=== PATIENT | male | born 2000 | race African-American/Black ===

== ENCOUNTER 2018-09-08 11:05 | Emergency (ER) | payer OTHER ==
[~2018-09-08] VITALS: Ht 180.3 cm; Wt 68.0 kg
[2018-09-08] MEDS ORDERED: TETRACAINE 0.5% OPHTH DROPS 4ML LEFTEYE ONE (14:30)
[2018-09-08] MEDS ORDERED: FLUORESCEIN SODIUM 1MG/STRIP LEFTEYE ONE (14:30)
[2018-09-08 15:30] VITALS: BP 117/62
== END 2018-09-08 15:45 | disposition home or self-care (01) ==
LOC: ER 11:05
DX: H01.004 Unspecified blepharitis left upper eyelid (principal); F12.10 Cannabis abuse, uncomplicated
CPT/HCPCS: 99283

== ENCOUNTER 2022-04-03 23:06 | Emergency (ER) | payer OTHER ==
[~2022-04-03] VITALS: Ht 177.8 cm; Wt 75.0 kg
[2022-04-03] MEDS ORDERED: KETOROLAC 30MG/ML VIAL IV ONE (23:15)
[2022-04-03] MEDS ORDERED: BACITRACIN ZINC OINT UDPKT TOP ONE (23:15)
[2022-04-03] MEDS ORDERED: ACETAMINOPHEN 325MG TABLET PO ONE (23:15)
[2022-04-03 23:39] LABS: BASOPHILS % 0.4 % (0.0-2.0); EOSINOPHILS % 1.8 % (0.0-5.0); HEMATOCRIT. 43.5 % (42.0-52.0); HEMOGLOBIN. 15.2 g/dL (14.0-18.0); LYMPHOCYTES % 57.1 % (20.0-50.0); MEAN CORPUSCULAR HEMOGLOBIN 28.6 pg (28.0-32.0); MEAN CORPUSCULAR VOLUME 81.8 fL (80.0-94.0); MEAN PLATELET VOLUME 8.5 fl (7.4-10.4); MONOCYTES % 6.8 % (2.0-8.0); NEUTROPHILS % 33.9 % (40.0-76.0); PLATELET 253 x1000/uL (130-400); RED BLOOD CELL COUNT 5.32 mill/uL (4.7-6.1); RED CELL DISTRIBUTION WIDTH 14.6 % (11.6-14.6)
[2022-04-03 23:41] LABS: INR 1.1; PROTHROMBIN TIME 11.7 sec (9.6-11.0)
[2022-04-03 23:42] LABS: CHLORIDE 107 mEq/L (98-107)
[2022-04-03 23:50] LABS: ETHANOL BLOOD < 10 mg/dL
[2022-04-04] MEDS ORDERED: POTASSIUM CHLORIDE 20MEQ TABLET SR PO ONE (00:30)
[2022-04-04] MEDS ORDERED: MAGNESIUM OXIDE 400MG TABLET PO SCH (00:30)
[2022-04-04] MEDS ORDERED: MAGNESIUM OXIDE 400MG TABLET PO NR (00:45)
[2022-04-04] MEDS ORDERED: BO1 TP (01:05)
[2022-04-04] MEDS ORDERED: TOPUD PO (01:05)
[2022-04-04] MEDS ORDERED: IBUP-2028 MT (01:05)
[2022-04-04 01:44] VITALS: BP 142/72
== END 2022-04-04 01:46 | disposition home or self-care (01) ==
LOC: ER 23:06
DX: S90.811A Abrasion, right foot, initial encounter (principal); V03.19XA Pedestrian with other conveyance injured in collision with car, pick-up truck or van in traffic accident, initial encounter; Y93.89 Activity, other specified; Y92.89 Other specified places as the place of occurrence of the external cause; Y99.8 Other external cause status; F12.10 Cannabis abuse, uncomplicated; Z87.891 Personal history of nicotine dependence
CPT/HCPCS: 36415; 73610; 73630; 80053; 80320; 83690; 85025; 85610; 86850; 86900; 86901; 96374; 99284; J1885; G0480